=== PATIENT | female | born 1985 | race Caucasian/White ===

== ENCOUNTER 2024-10-01 17:11 | Emergency (ER) | payer BC, MEDICAID ==
[~2024-10-01] VITALS: Ht 165.1 cm; Wt 79.1 kg
[~2024-10-01 17:11] MED LIST: PREN-96 PO
[2024-10-01 17:20] VITALS: BP 138/90; PULSE 91; RESP 17; TEMP 98.1; O2SAT 99
--- NOTE | 2024-10-01 18:16 | DVH ---
Procedure: US GALLBLADDER Study Date and Requested Time: 10/01/2024 05:40 PM History: pain Comparison: None Technique: Multiple high resolution ricardo-scale images obtained of the right upper quadrant of the abd omen with color Doppler for evaluation of blood flow and vascularity as indicated. Findings: Liver normal in size, measuring 15.1 cm in length, with increased echogenicity and normal contours. N o evidence of focal hepatic lesions, intrahepatic or extrahepatic ductal dilatation. Common bile duct measures 0.3 cm in diameter. Gallbladder unremarkable with no evidence of abnormal wall thickening, gallstones, biliary sludge, or pericholecystic fluid. Negative sonographic Ledesma's sign. Pancreas is poorly visualized due to overlying bowel gas. Right kidney measures 11.5 cm in length, with normal contours, echotexture, and cortical thickness. N o evidence of hydronephrosis, calculi, cystic or solid renal lesions. Partially visualized inferior vena cava unremarkable. Impression: Increased hepatic echogenicity which may be from hepatic disease/ hepatic steatosis. Otherwise, unre markable sonographic study of the right upper abdominal quadrant. Pancreas is poorly visualized due to overlying bowel gas.
[2024-10-01 18:20] LABS: Hematocrit 41.1 % (36.0-46.0); Hemoglobin 13.8 g/dL (12.2-16.2); Mean Corpuscular Hemoglobin 29.2 pg (28.0-32.0); Mean Corpuscular Volume 86.8 fL (80.0-100.0); Nucleated Red Blood Cells % 0.0 %
[2024-10-01 18:33] LABS: Urine Protein, UAD Negative (Negative)
[2024-10-01 18:38] LABS: Alanine Aminotransferase 19 U/L (7-40); Albumin 4.6 g/dL (3.2-4.8); Alkaline Phosphatase 63 U/L (46-116); Anion Gap 9 (5-15); BUN/Creatinine Ratio 9.2 (10.0-20.0); Calcium 9.3 mg/dL (8.7-10.4); Carbon Dioxide 25 mmol/L (20-31); Chloride 106 mmol/L (98-107); Glucose 86 mg/dL (74-106); Lipase 36 U/L (12-53); Potassium 3.7 mmol/L (3.5-5.1); Sodium 140 mmol/L (136-145); Total Protein 7.7 g/dL (5.7-8.2)
[2024-10-01 18:39] LABS: Bilirubin, Total 0.9 mg/dL (0.2-1.0)
[2024-10-01 18:41] LABS: Blood Urea Nitrogen 7 mg/dL (9-23)
--- NOTE | 2024-10-01 18:41 | ED.PDOC ---
GI ASSESSMENT HPI Comments 39 y.o female presents to the ED for a chief complaint of abdominal pain associated with nausea and SOB that started earlier today. Patient reports standing up, felt lightheaded and shortly after developed the abdominal pain localized to the epigastric and RLQ region. Patient describes pain as an ache and pressure sensation that is non radiating, constant and rating a 5/10 on the pain scale. Patient denies any vomiting, diarrhea, fever, chills, bloody stool, hematemesis, dysuria. Patient has no medical history or allergies. She reports occasional use of alcohol. Chief Complaint: Abdominal Pain Time Seen by MD: 18:10 Primary Care Provider: LEDY Reviewed Notes: Nurses Notes, Medications, Allergies Allergies: Coded Allergies: Penicillins (Verified Allergy, Unknown, 09/30/13) Home Meds Reported Medications Vit W/ Ferrous Fumara ( One Daily) Daily Tab, 1 TAB PO DAILY, #90 TAB 3 Refills 02/24/14 Information Source: Patient Mode of Arrival: Ambulatory Timing: Hours Duration: Since onset Quality: Aching Vomitus: None Stool: Normal Severity: Moderate Recent: None Recent Hx of: None Pain Location: Epigastric, RLQ Modifying Factors: Nothing Associated sign and symptoms: Nausea, Abdominal Pain Past Medical History PAST MEDICAL HISTORY: Denies 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 Family History Family History: Family hx of heart claudia Social History Smoker: Non-Smoker Alcohol: Occasionally Drugs: Denies Drug Use Lives In: Home Constitutional: denies: chills, diaphoresis, fatigue, fever, malaise, sweats, weakness, others EENTM: denies: blurred vision, double vision, ear bleeding, ear discharge, ear drainage, ear pain, ear ringing, eye pain, eye redness, hearing loss, mouth pain, mouth swelling, nasal discharge, nose bleeding, nose congestion, nose pain, photophobia, tearing, throat pain, throat swelling, voice changes, others Respiratory: reports: shortness of breath; denies: cough, hemoptysis, orthopnea, SOB at rest, SOB with excertion, stridor, wheezing, others Cardiovascular: reports: lightheadedness; denies: chest pain, dizzy spells, diaphoresis, Dyspnea on exertion, edema, irregular heart beat, left arm pain, palpitations, PND, syncope, others Gastrointestinal: reports: abdominal pain, nausea; denies: abdomen distended, blood streaked bowels, constipated, diarrhea, dysphagia, difficulty swallowing, hematemesis, melena, poor appetite, poor fluid intake, rectal bleeding, rectal pain, vomiting, others Genitourinary: denies: abnormal vagina bleeding, burning, dyspareunia, dysuria, flank pain, frequency, hematuria, incontinence, pain, , vagina discharge, urgency, others Neurological: denies: dizziness, fainting, headache, left sided numbness, left sided weakness, numbness, paresthesia, pre-existing deficit, right sided numbness, right sided weakness, seizure, speech problems, tingling, tremors, weakness, others Musculoskeletal: denies: back pain, gout, joint pain, joint swelling, muscle pain, muscle stiffness, neck pain, others Integumetry: denies: bruises, change in color, change in hair/nails, dryness, laceration, lesions, lumps, rash, wounds, others Allergic/Immunocompromised: denies: Difficulty Healing, Frequent Infections, Hives, Itching, others Hematologic/Lymphatic: denies: anemia, blood clots, easy bleeding, easy bruising, swollen glands, others Endocrine: denies: excessive hunger, excessive sweating, excessive thirst, excessive urination, flushing, intolerance to cold, intolerance to heat, unexplained weight gain, unexplained weight loss, others Psychiatric: denies: anxiety, bipolar disorder, depression, hopeless, panic disorder, schizophrenia, sleepless, suicidal, others All Other Systems: Reviewed and Negative Physical Exam General Appearance: Moderate Distress, Obese HEENT: Normal ENT Inspection, Pharynx Normal, TMs Normal Neck: Full Range of Motion, Non-Tender, Normal, Normal Inspection Respiratory: Chest Non-Tender, Lungs Clear, No Accessory Muscle Use, No Respiratory Distress, Normal Breath Sounds Cardiovascular: No Edema, No JVD, No Murmur, No Gallop, Normal Peripheral Pulses, Regular Rate/Rhythm Breast Exam: Deferred Gastrointestinal: Epigastric, No Organomegaly, No Pulsatile Mass, Normal Bowel Sounds, Soft, Tenderness Genitalia: Deferred Pelvic: Deferred Rectal: Deferred Extremities: No calf tenderness, Normal capillary refill, No pedal edema Musculoskeletal : Apperance: Normal Neurologic: Alert, coagulating bath operator II-XII nml as Tested, No Motor Deficits, Normal Affect, Normal Mood, No Sensory Deficits Cerebellar Function: Normal Reflexes: Normal Skin: Dry, Normal Color, Warm Lymphatic: No Adenopathy Was a procedure done? Was a procedure done?: No GI differential Dx Differential Diagnosis: Gastroenteritis, Inflammatory BD, Dehydration, Electrolyte Imbalance, Food Poisoning, Viral X-Ray, Labs, Meds, VS Vital Signs Date Time Temp Pulse Resp B/P (MAP) Pulse Ox O2 Delivery O2 Flow Rate FiO2 10/01/24 17:20 98.1 91 17 138/90 (106) 99 98.1 Lab Test 10/01/24 18:21 10/01/24 17:41 Range/Units Urine Color Colorless Yellow Urine Clarity Clear Clear Urine pH 5.5 5.0-9.0 Urine Specific [place] 1.009 1.001-1.035 Urine Protein Negative Negative Urine Ketones Negative Negative Urine Blood Negative Negative /uL Urine Nitrite Negative Negative Urine Bilirubin Negative Negative Urine Urobilinogen Normal Negative mg/dL Urine Leukocyte Esterase Negative Negative /uL Urine RBC <1 0 - 4 /hpf Urine Microscopic WBC 1 0-5 /HPF Urine Squamous Epithelial Cells Few <5 /hpf Urine Bacteria Few H None Seen /hpf Urine Glucose Normal Normal mg/dL Urine Test Negative Negative White Blood Count 9.2 4.4-10.8 10^3/uL Red Blood Count 4.74 4.0-5.20 10^6/uL Hemoglobin 13.8 12.2-16.2 g/dL Hematocrit 41.1 36.0-46.0 % Mean Corpuscular Volume 86.8 80.0-100.0 fL Mean Corpuscular Hemoglobin 29.2 28.0-32.0 pg Mean Corpuscular Hemoglobin Concent 33.6 32.0-36.0 g/dL Red Cell Distribution Width 13.3 11.8-14.3 % Platelet Count 208 140-450 10^3/uL Mean Platelet Volume 8.7 6.9-10.8 fL Neutrophils (%) (Auto) 63.9 37.0-80.0 % Lymphocytes (%) (Auto) 28.2 10.0-50.0 % Monocytes (%) (Auto) 7.1 0.0-12.0 % Eosinophils (%) (Auto) 0.4 0.0-7.0 % Basophils (%) (Auto) 0.4 0.0-2.0 % Neutrophils # (Auto) 5.9 1.6-8.6 10 ^3/uL Lymphocytes # (Auto) 2.6 0.4-5.4 10 ^3/uL Monocytes # (Auto) 0.7 0-1.3 10 ^3/uL Eosinophils # (Auto) 0 0-0.8 10 ^3/uL Basophils # (Auto) 0 0-0.2 10 ^3/uL Nucleated Red Blood Cells 0.0 % Sodium Level 140 136-145 mmol/L Potassium Level 3.7 3.5-5.1 mmol/L Chloride Level 106 98-107 mmol/L Carbon Dioxide Level 25 20-31 mmol/L Anion Gap 9 5-15 Blood Urea Nitrogen 7 L 9-23 mg/dL Creatinine 0.76 0.550-1.02 mg/dL Glomerular Filtration Rate Calc 102 >90 mL/min BUN/Creatinine Ratio 9.2 L 10.0-20.0 Serum Glucose 86 74-106 mg/dL Calcium Level 9.3 8.7-10.4 mg/dL Total Bilirubin 0.9 0.2-1.0 mg/dL Aspartate Amino Transferase (AST) 22 13-40 U/L Alanine Aminotransferase (ALT) 19 7-40 U/L Alkaline Phosphatase 63 46-116 U/L Total Protein 7.7 5.7-8.2 g/dL Albumin 4.6 3.2-4.8 g/dL Lipase 36 12-53 U/L Ultrasound of the gallbladder is negative The CBC and chemistry panel are within normal limits The lipase is within normal limits The urine test is negative The test is negative The patient continues to have pain. The patient is being given Protonix 40 mg IV push for nausea and the pain The patient is also given Zofran IV push The patient is being admitted at this time. Images Reviewed?: Images reviewed and evaluated by me Time of 1ST Reevaluation: 18:41 Reevaluation 1ST: Unchanged Patient Education/Counseling: Diagnosis, Treatment, Prognosis Family Education/Counseling: No Family Present SEPSIS Sepsis Screen Date sepsis recognized/suspect: Oct 01, 2024 Time Sepsis recognized/suspect: 1719 Recent Procedure: No On Antibiotic Therapy: No Respiratory Rate >20: No Heart Rate >90: No Temp<36 C (96.8 F) or >38.3 C: No SBP <90 or MAP <65 mmHG: No New Acute Mental Status Change: No Is the patient on CPAP, BIPAP,: No Physician Orders Gallbladder (10/01/24 17:31) Vital Signs Date Time Temp Pulse Resp B/P (MAP) Pulse Ox O2 Delivery O2 Flow Rate FiO2 10/01/24 17:20 98.1 91 17 138/90 (106) 99 98.1 Laboratory Tests Test 10/01/24 17:41 White Blood Count 9.2 10^3/uL (4.4-10.8) Departure 1 Departure Time of Disposition: 18:53 Impression: Primary Impression: Abdominal pain of unknown etiology Disposition: ADMITTED INPATIENT Admit to: Med Surg Condition: Fair Critical Care Note Critical Care Time?: No Stability Stability form required: Yes Unstable for transfer: ED Physician Assesment (Clinical assesment) I personally scribed for JEREMY HORVATH MD ([email or web address]) on 10/01/24 at 18:41. Electronically submitted by Carla Morse ([facility]). JEREMY HORVATH MD Oct 01, 2024 18:41
[2024-10-01] MEDS ORDERED: ONDANSETRON HCL 4 MG/2 ML VIAL IV PRN (19:45)
[2024-10-01] MEDS ORDERED: HYDROcodone-ACET 5/325MG TAB PO PRN (19:45)
[2024-10-01] MEDS ORDERED: ACETAMINOPHEN 325 MG TAB PO PRN (19:45)
[2024-10-02] MEDS ORDERED: PANTOPRAZOLE 40 MG/10 ML VIAL INJ IV SCH (10:00)
== END 2024-10-01 20:23 | disposition left against medical advice (07) ==
LOC: ER 17:11 → UNDOADMIN 19:28 → OVERFLOW 19:28 → UNDODISIN 20:23 → OVERFLOW 20:23
DX: R10.13 Epigastric pain (principal)
CPT/HCPCS: 36415; 76705; 80053; 81001; 81025; 83690; 85025; G0378

== ENCOUNTER 2024-10-01 20:49 | Inpatient (IN) | payer BC ==
[~2024-10-01] VITALS: Ht 165.1 cm; Wt 79.2 kg
[2024-10-01] MEDS: MORPHINE SULFATE 4 MG/ML SYR/VIAL IV ONE (21:00)
--- NOTE | 2024-10-01 21:02 | ED.PDOC ---
GI ASSESSMENT HPI Comments 39 y.o female presents to the ED for a chief complaint of abdominal pain associated with nausea and SOB that started earlier today. Patient reports standing up, felt lightheaded and shortly after developed the abdominal pain localized to the epigastric and RLQ region. Patient describes pain as an ache and pressure sensation that is non radiating, constant and rating a 5/10 on the pain scale. Patient denies any vomiting, diarrhea, fever, chills, bloody stool, hematemesis, dysuria. Patient has no medical history or allergies. She reports occasional use of alcohol. Patient AMA after being placed for admission due to anxiety but checked in again due to persistent symptoms and agrees to stay. Time Seen by MD: 21:00 Primary Care Provider: LEDY Reviewed Notes: Nurses Notes, Medications, Allergies Allergies: Coded Allergies: Penicillins (Verified Allergy, Unknown, 09/30/13) Home Meds Reported Medications Vit W/ Ferrous Fumara ( One Daily) Daily Tab, 1 TAB PO DAILY, #90 TAB 3 Refills 02/24/14 Information Source: Patient Mode of Arrival: Ambulatory Timing: Days Duration: Since onset Quality: Sharp Vomitus: None Stool: Normal Severity: Moderate Recent: None Recent Hx of: None Pain Location: Epigastric Modifying Factors: Nothing Associated sign and symptoms: Nausea, Abdominal Pain Past Medical History PAST MEDICAL HISTORY: Denies 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 Family History Family History: Family hx of heart claudia Social History Smoker: Non-Smoker Alcohol: Occasionally Drugs: Denies Drug Use Lives In: Home Constitutional: denies: chills, diaphoresis, fatigue, fever, malaise, sweats, weakness, others EENTM: denies: blurred vision, double vision, ear bleeding, ear discharge, ear drainage, ear pain, ear ringing, eye pain, eye redness, hearing loss, mouth pain, mouth swelling, nasal discharge, nose bleeding, nose congestion, nose pain, photophobia, tearing, throat pain, throat swelling, voice changes, others Respiratory: denies: cough, hemoptysis, orthopnea, SOB at rest, shortness of breath, SOB with excertion, stridor, wheezing, others Cardiovascular: denies: chest pain, dizzy spells, diaphoresis, Dyspnea on exertion, edema, irregular heart beat, left arm pain, lightheadedness, palpitations, PND, syncope, others Gastrointestinal: reports: abdominal pain, nausea; denies: abdomen distended, blood streaked bowels, constipated, diarrhea, dysphagia, difficulty swallowing, hematemesis, melena, poor appetite, poor fluid intake, rectal bleeding, rectal pain, vomiting, others Genitourinary: denies: abnormal vagina bleeding, burning, dyspareunia, dysuria, flank pain, frequency, hematuria, incontinence, pain, , vagina discharge, urgency, others Neurological: denies: dizziness, fainting, headache, left sided numbness, left sided weakness, numbness, paresthesia, pre-existing deficit, right sided numbness, right sided weakness, seizure, speech problems, tingling, tremors, weakness, others Musculoskeletal: denies: back pain, gout, joint pain, joint swelling, muscle pain, muscle stiffness, neck pain, others Integumetry: denies: bruises, change in color, change in hair/nails, dryness, laceration, lesions, lumps, rash, wounds, others Allergic/Immunocompromised: denies: Difficulty Healing, Frequent Infections, Hives, Itching, others Hematologic/Lymphatic: denies: anemia, blood clots, easy bleeding, easy bruising, swollen glands, others Endocrine: denies: excessive hunger, excessive sweating, excessive thirst, excessive urination, flushing, intolerance to cold, intolerance to heat, unexplained weight gain, unexplained weight loss, others Psychiatric: denies: anxiety, bipolar disorder, depression, hopeless, panic disorder, schizophrenia, sleepless, suicidal, others All Other Systems: Reviewed and Negative Physical Exam General Appearance: Moderate Distress HEENT: Normal ENT Inspection, Pharynx Normal, TMs Normal Neck: Full Range of Motion, Non-Tender, Normal, Normal Inspection Respiratory: Chest Non-Tender, Lungs Clear, No Accessory Muscle Use, No Respiratory Distress, Normal Breath Sounds Cardiovascular: No Edema, No JVD, No Murmur, No Gallop, Normal Peripheral Pulses, Regular Rate/Rhythm Breast Exam: Deferred Gastrointestinal: Epigastric, No Organomegaly, No Pulsatile Mass, Normal Bowel Sounds, Soft, Tenderness Genitalia: Deferred Pelvic: Deferred Rectal: Deferred Extremities: No calf tenderness, Normal capillary refill, Normal inspection, Normal range of motion, Non-tender, No pedal edema Musculoskeletal : Apperance: Normal Neurologic: Alert, steel placer II-XII nml as Tested, No Motor Deficits, Normal Affect, Normal Mood, No Sensory Deficits Cerebellar Function: Normal Reflexes: Normal Skin: Dry, Normal Color, Warm Lymphatic: No Adenopathy Was a procedure done? Was a procedure done?: No GI differential Dx Differential Diagnosis: Gastroenteritis, Pancreatitis, Electrolyte Imbalance, Viral X-Ray, Labs, Meds, VS Vital Signs Date Time Temp Pulse Resp B/P (MAP) Pulse Ox O2 Delivery O2 Flow Rate FiO2 10/01/24 21:02 98.2 103 20 125/92 (103) 98 98.2 IV Hep-Lock was established The patient is being given morphine IV push The patient is being given Zofran IV push At this time, the patient is being admitted The patient was supposed to be admitted but signed out AMA earlier today. The patient has now returned with increased pain so the patient is being admitted at this time We did explain to the patient that we are concerned that even if the ultrasound is negative for stones we need to do a HIDA scan secondary to persistent pain Time of 1ST Reevaluation: 21:02 Reevaluation 1ST: Unchanged Patient Education/Counseling: Diagnosis, Treatment, Prognosis Family Education/Counseling: No Family Present SEPSIS Sepsis Screen Physician Orders Heplock Iv (10/01/24 ) Vital Signs Date Time Temp Pulse Resp B/P (MAP) Pulse Ox O2 Delivery O2 Flow Rate FiO2 10/01/24 21:02 98.2 103 20 125/92 (103) 98 98.2 Departure 1 Departure Time of Disposition: 21:12 Impression: Primary Impression: Abdominal pain of unknown etiology Disposition: ADMITTED INPATIENT Admit to: Tele Condition: Fair Critical Care Note Critical Care Time?: No Stability Stability form required: Yes Unstable for transfer: ED Physician Assesment (Clinical assesment) I personally scribed for JEREMY HORVATH MD ([email or web address]) on 10/01/24 at 21:02. Electronically submitted by Carla Morse ([facility]). JEREMY HORVATH MD Oct 01, 2024 21:02
[2024-10-01] MEDS: SODIUM CHLORIDE 0.9% 1,000 ML IV ONE (22:00)
--- NOTE | 2024-10-01 22:49 | DVH ---
Exam: CT CT AB PEL WO CON-NO ORAL OR IV History: abd. pain Comparison Study: None Technique: Multidetector spiral CT of the abdomen was performed from lung bases to pubic symphysis. Imaging was performed without IV contrast. Axial, coronal and sagittal multiplanar reformats were ob tained from the axial data set by the technologist. Radiation dose : 1. Abdomen/Pelvis: CTDIvol 8.34 mGy, DLP 480.53 mGy*cm. Findings: Evaluation of solid organs is limited due to lack of intravenous contrast use. The imaged lung bases are unremarkable. Subcentimeter left hepatic lobe cyst. Gallbladder, spleen, pancreas, adrenal glands, and right kidney s within normal limits. Punctate left lower pole renal stone. Urinary bladder is unremarkable. The ut erus and adnexa are within normal limits. Stomach is mildly distended with undigested material. Small bowel and appendix are within normal limi ts. Trace free fluid in the pelvis. Aorta is normal in caliber. Bones are unremarkable. IMPRESSION: 1. No acute abdominal or pelvic findings. 2. Punctate left lower pole renal stone 3. Mildly distended stomach with undigested material Radiation optimization: All CT scans at this facility use at least one of these dose optimization elan hniques: automated exposure control mA and/or kV adjustment per patient size (includes targeted exam s where dose is matched to clinical indication) or iterative reconstruction.
[2024-10-02] VITALS (7 sets, daily range): BP systolic 91–108; BP diastolic 56–72; PULSE 73–80; RESP 14–18; TEMP 98–98.5; O2SAT 96–100
[2024-10-02] MEDS: ONDANSETRON HCL 4 MG/2 ML VIAL IV ONE
--- NOTE | 2024-10-02 01:21 | DVHHP2 ---
History of Present Illness Reason for Visit: Abdominal pain History of Present Illness 39-year-old female presents for evaluation of abdominal. Patient reports a one day history of pressure-like epigastric abdominal pain that radiates to his right lower quadrant. No nausea, vomiting or diarrhea. Denies dysuria. No other acute complaints. Past Medical History Denies Past Surgical History Family History Noncontributory Smoke: No ALCOHOL: occassional Drugs: None Review of Systems Review of Systems Review of systems are currently negative otherwise addressed in HPI. Allergies: Coded Allergies: Penicillins (Verified Allergy, Unknown, 09/30/13) Medications Current Medications Medications Dose Ordered Sig/Carlos Route Start Time Stop Time Status Last Admin Dose Admin Pantoprazole Sodium 40 mg DAILY IV 10/02/24 10:00 Acetaminophen/ Hydrocodone Bitart 1 tab Q4HP PRN PO 10/01/24 22:00 Ondansetron HCl 4 mg Q4HP PRN IV 10/01/24 22:00 Acetaminophen 650 mg Q6HP PRN PO 10/01/24 22:00 Exam Vital Signs Vital Signs Date Time Temp Pulse Resp B/P (MAP) Pulse Ox O2 Delivery O2 Flow Rate FiO2 10/02/24 00:22 93 16 98 Room Air 10/02/24 00:22 98.5 123/87 (99) 98.5 Exam Gen: 39-year-old female in no apparent distress. Skin: Warm, dry, normal color and texture, no rash. HEENT: Normocephalic atraumatic, mucous membranes moist and pink. Neck: Cervical and supraclavicular nodes normal without enlargement, trachea is midline, thyroid gland is normal without masses. Pulmonary: Clear to auscultation and percussion bilaterally. Cardiac: Regular rate and rhythm. No murmur Abdomen: Soft, nontender, nondistended, bowel sounds present all 4 quadrants, no guarding, no rigidity, no organomegaly. Extremities: No cyanosis, clubbing, no edema Neuro: Cranial nerves II through XII grossly intact, normal affect and speech, no focal motor deficits. Labs/Xrays ORDERING PHYSICIAN: JEREMY HORVATH MD PROCEDURE(s): GBUS - GALLBLADDER REASON: pain ORDER NUMBER(s): [id number], ACCESSION NUMBER(s): [id number] Procedure: US GALLBLADDER Study Date and Requested Time: 10/01/2024 05:40 PM History: pain Comparison: None Technique: Multiple high resolution ricardo-scale images obtained of the right upper quadrant of the abdomen with color Doppler for evaluation of blood flow and vascularity as indicated. Findings: Liver normal in size, measuring 15.1 cm in length, with increased echogenicity and normal contours. No evidence of focal hepatic lesions, intrahepatic or extrahepatic ductal dilatation. Common bile duct measures 0.3 cm in diameter. Gallbladder unremarkable with no evidence of abnormal wall thickening, gallstones, biliary sludge, or pericholecystic fluid. Negative sonographic Ledesma's sign. Pancreas is poorly visualized due to overlying bowel gas. Right kidney measures 11.5 cm in length, with normal contours, echotexture, and cortical thickness. No evidence of hydronephrosis, calculi, cystic or solid renal lesions. Partially visualized inferior vena cava unremarkable. Impression: Increased hepatic echogenicity which may be from hepatic disease/ hepatic steatosis. Otherwise, unremarkable sonographic study of the right upper abdominal quadrant. Pancreas is poorly visualized due to overlying bowel gas. RING PHYSICIAN: ELIAS BEY PROCEDURE(s): ABPL - CT AB PEL WO CON-NO ORAL OR IV REASON: abd. pain ORDER NUMBER(s): [id number], ACCESSION NUMBER(s): [id number] Exam: CT CT AB PEL WO CON-NO ORAL OR IV History: abd. pain Comparison Study: None Technique: Multidetector spiral CT of the abdomen was performed from lung bases to pubic symphysis. Imaging was performed without IV contrast. Axial, coronal and sagittal multiplanar reformats were obtained from the axial data set by the technologist. Radiation dose : 1. Abdomen/Pelvis: CTDIvol 8.34 mGy, DLP 480.53 mGy*cm. Findings: Evaluation of solid organs is limited due to lack of intravenous contrast use. The imaged lung bases are unremarkable. Subcentimeter left hepatic lobe cyst. Gallbladder, spleen, pancreas, adrenal glands, and right kidneys within normal limits. Punctate left lower pole renal stone. Urinary bladder is unremarkable. The uterus and adnexa are within normal limits. Stomach is mildly distended with undigested material. Small bowel and appendix are within normal limits. Trace free fluid in the pelvis. Aorta is normal in caliber. Bones are unremarkable. IMPRESSION: 1. No acute abdominal or pelvic findings. 2. Punctate left lower pole renal stone 3. Mildly distended stomach with undigested material Radiation optimization: All CT scans at this facility use at least one of these dose optimization techniques: automated exposure control mA and/or kV adjustment per patient size (includes targeted exams where dose is matched to clinical indication) or iterative reconstruction. Assessment/Plan Assessment/Plan Assessment Acute abdominal pain Plan Admit the patient to [facility] to the hospitalist Maintenance IV fluids Protonix Pain management Clear liquid diet Continue treatment per orders. Plan discussed with: Patient My Orders Orders - ELIAS BEY Procedure Category Date Status Time Basic Metabolic Panel LAB 10/02/24 Logged 04:00 Pantoprazole PHA 10/02/24 In Process (Protonix) 10:00 Sodium Chloride 0.9% PHA 10/01/24 In Process 22:00 Ct Ab Pel Wo Con-No CT 10/01/24 Resulted Oral Or Iv 21:54 Admit ADMIT 10/01/24 Transmitted 21:54 Hydrocodone-Acet PHA 10/01/24 In Process 5/325mg Tab ([place] 22:00 Ondansetron Hcl PHA 10/01/24 In Process (Zofran) 22:00 Condition: Stable RACHELL 10/01/24 In Process 21:54 Acetaminophen Tablet PHA 10/01/24 In Process (Tylenol Tablet) 22:00 Clear Liq Diet DIET 10/02/24 Transmitted Breakfast Bedrest With Bathroom RACHELL 10/01/24 In Process Privileg 21:54 Date of Service: Oct 01, 2024 Billing Provider: ELIAS BEY Common Visit Codes: [id number] INP/OBS CARE (MOD) ELIAS BEY Oct 02, 2024 01:21
[2024-10-02] MEDS: ACETAMINOPHEN 325 MG TAB PO PRN (06:28)
[2024-10-02 06:57] LABS: Sodium 139 mmol/L (136-145)
[2024-10-02 06:58] LABS: Anion Gap 10 (5-15); Carbon Dioxide 22 mmol/L (20-31)
[2024-10-02 06:59] LABS: Calcium 8.6 mg/dL (8.7-10.4); Chloride 107 mmol/L (98-107); Potassium 3.5 mmol/L (3.5-5.1)
[2024-10-02 07:03] LABS: BUN/Creatinine Ratio 11.1 (10.0-20.0); Glucose 94 mg/dL (74-106)
[2024-10-02 07:04] LABS: Blood Urea Nitrogen 8 mg/dL (9-23)
[2024-10-02] MEDS: PANTOPRAZOLE 40 MG/10 ML VIAL INJ IV SCH (09:01)
--- NOTE | 2024-10-02 14:48 | DVHPN2 ---
Reviewed: Care Plan, H&P, Labs, Medications, Previous Orders, Radiology Changes from previous H/P or p: No Changes Objective Vitals Vital Signs Date Time Temp Pulse Resp B/P (MAP) Pulse Ox O2 Delivery O2 Flow Rate FiO2 10/02/24 08:45 98.2 77 16 98/56 (70) 96 98.2 10/02/24 00:22 Room Air Medications Current Medications Medications Dose Ordered Sig/Carlos Route Start Time Stop Time Status Last Admin Dose Admin Pantoprazole Sodium 40 mg DAILY IV 10/02/24 10:00 10/02/24 09:01 40 MG Acetaminophen/ Hydrocodone Bitart 1 tab Q4HP PRN PO 10/01/24 22:00 Ondansetron HCl 4 mg Q4HP PRN IV 10/01/24 22:00 Acetaminophen 650 mg Q6HP PRN PO 10/01/24 22:00 10/02/24 06:28 650 MG Laboratory Results Laboratory Tests 10/02/24 05:48 Chemistry Test 10/02/24 05:48 Calcium Level 8.6 mg/dL (8.7-10.4) L Labs and/or images reviewed: Labs reviewed by me, Image(s) reviewed by me Assessment/Plan Assessment/Plan Acute epigastric pain: CT abdomen pelvis without contrast negative, will order lipase and urine drug screen., consult for GI Dr. Geraldine West Plan discussed with: Patient Date of Service: Oct 02, 2024 Billing Provider: JEN FINNEY MD Common Visit Codes: [id number] INP/OBS CARE(HIGH) JEN FINNEY MD Oct 02, 2024 14:48
[2024-10-02] MEDS: ONDANSETRON HCL 4 MG/2 ML VIAL IV PRN (15:13)
[2024-10-02] MEDS: HYDROcodone-ACET 5/325MG TAB PO PRN (15:14)
--- NOTE | 2024-10-02 17:23 | DVHINCON2 ---
Date of service: Oct 02, 2024 Referring Physician Jamal Powell Reason for Consultation Abdominal pain History of Present Illness 39-year-old female presents for evaluation of abdominal. Patient reports a one day history of pressure-like epigastric abdominal pain that radiates to her right lower quadrant. No nausea, vomiting or diarrhea. Denies dysuria. No other acute complaints. Patient was seen in our ER yesterday with similar complaints and left AMA. She however presented back with persistent symptoms. No active GI bleed is reported. Past Medical History Alcohol use Past Surgical History Allergies: Coded Allergies: Penicillins (Verified Allergy, Unknown, 09/30/13) Home Meds Reported Medications Vit W/ Ferrous Fumara ( One Daily) Daily Tab, 1 TAB PO DAILY, #90 TAB 3 Refills 02/24/14 Current Medications Current Medications Medications (Trade) Dose Ordered Sig/Carlos Route PRN Reason Start Time Stop Time Status Last Admin Pantoprazole Sodium (Protonix) 40 mg DAILY IV 10/02/24 10:00 10/02/24 09:01 Acetaminophen/ Hydrocodone Bitart (Linneus 5/325MG Tab) 1 tab Q4HP PRN PO MODERATE PAIN (4-6 PAIN SCALE) 10/01/24 22:00 10/02/24 15:14 Ondansetron HCl (Zofran) 4 mg Q4HP PRN IV NAUSEA / VOMITING 10/01/24 22:00 10/02/24 15:13 Acetaminophen (Tylenol Tablet) 650 mg Q6HP PRN PO PAIN SCALE 1-3 OR TEMP>100.4 10/01/24 22:00 10/02/24 06:28 Vital Signs Vital Signs Date Time Temp Pulse Resp B/P (MAP) Pulse Ox O2 Delivery O2 Flow Rate FiO2 10/02/24 14:00 98.5 76 16 108/72 (84) 98 98.5 10/02/24 00:22 Room Air Physical Exam Gen: 39-year-old female in no apparent distress. Skin: Warm, dry, normal color and texture, no rash. HEENT: Normocephalic atraumatic, mucous membranes moist and pink. Neck: Cervical and supraclavicular nodes normal without enlargement, trachea is midline, thyroid gland is normal without masses. Pulmonary: Clear to auscultation and percussion bilaterally. Cardiac: Regular rate and rhythm. No murmur Abdomen: Soft, nontender, nondistended, bowel sounds present all 4 quadrants, no guarding, no rigidity, no organomegaly. Extremities: No cyanosis, clubbing, no edema Neuro: Cranial nerves II through XII grossly intact, normal affect and speech, no focal motor deficits. Labs/Diagnostic Data Labs Test 10/02/24 05:48 Range/Units Sodium Level 139 136-145 mmol/L Potassium Level 3.5 3.5-5.1 mmol/L Chloride Level 107 98-107 mmol/L Carbon Dioxide Level 22 20-31 mmol/L Anion Gap 10 5-15 Blood Urea Nitrogen 8 L 9-23 mg/dL Creatinine 0.72 0.550-1.02 mg/dL Glomerular Filtration Rate Calc 109 >90 mL/min BUN/Creatinine Ratio 11.1 10.0-20.0 Serum Glucose 94 74-106 mg/dL Calcium Level 8.6 L 8.7-10.4 mg/dL Lipase 39 12-53 U/L Beta HCG, Quantitative 0.5 L 1.5-4.2 mIU/mL CT SCAN ABD PELVIS IMPRESSION: 1. No acute abdominal or pelvic findings. 2. Punctate left lower pole renal stone 3. Mildly distended stomach with undigested material RUQ USG Impression: Increased hepatic echogenicity which may be from hepatic disease/ hepatic steatosis. Otherwise, unremarkable sonographic study of the right upper abdominal quadrant. Pancreas is poorly visualized due to overlying bowel gas. Problems(with codes): (1) Abdominal pain of unknown etiology Plan/Recommendation Plan IV fluid hydration IV PPI Clear liquid diet Possible endoscopy on 10/03/2024 DC aspirin NSAIDs smoking alcohol Monitor labs, drug screen Plan discussed with: Patient, Other (Dr Jamal Powell) RAMON LALA MD Oct 02, 2024 17:23
[2024-10-02 19:16] LABS: Opiate Scree,Urine Neg (NEGATIVE)
[2024-10-02 19:38] LABS: Amphetamine Screen, Urine Neg (NEGATIVE); Barbiturate Scree,Urine Neg (NEGATIVE); Benzodiazephine Screen, Urine Neg (NEGATIVE); Cannabinoid Screen, Urine Neg (NEGATIVE); Cocaine Screen, Urine Neg (NEGATIVE); Phencyclidine Screen, Urine Neg (NEGATIVE)
[2024-10-03] VITALS (11 sets, daily range): BP systolic 93–117; BP diastolic 49–77; PULSE 70–101; RESP 12–20; TEMP 97.8–98.9; O2SAT 92–99
[2024-10-03 09:02] LABS: INR 1.07 (0.9-1.15); Partial Thromboplastin Time 29.3 SEC (24.5-34.5); Prothrombin Time 11.3 sec (9.3-11.8)
[2024-10-03 09:06] LABS: Hematocrit 39.0 % (36.0-46.0); Hemoglobin 13.1 g/dL (12.2-16.2); Mean Corpuscular Hemoglobin 29.4 pg (28.0-32.0); Mean Corpuscular Volume 87.3 fL (80.0-100.0); Nucleated Red Blood Cells % 0.1 %
--- NOTE | 2024-10-03 10:28 | DVHPN2 ---
Reviewed: Care Plan, H&P, Labs, Medications, Previous Orders, Radiology Changes from previous H/P or p: No Changes Objective Vitals Vital Signs Date Time Temp Pulse Resp B/P (MAP) Pulse Ox O2 Delivery O2 Flow Rate FiO2 10/03/24 09:00 98.3 78 18 101/49 (66) 97 98.3 10/02/24 22:05 Room Air* 0 21 Medications Current Medications Medications Dose Ordered Sig/Carlos Route Start Time Stop Time Status Last Admin Dose Admin Pantoprazole Sodium 40 mg DAILY IV 10/02/24 10:00 10/03/24 10:20 40 MG Acetaminophen/ Hydrocodone Bitart 1 tab Q4HP PRN PO 10/01/24 22:00 10/02/24 15:14 1 TAB Ondansetron HCl 4 mg Q4HP PRN IV 10/01/24 22:00 10/02/24 15:13 4 MG Acetaminophen 650 mg Q6HP PRN PO 10/01/24 22:00 10/03/24 10:20 650 MG Laboratory Results Laboratory Tests 10/02/24 05:48 10/03/24 07:55 Coagulation Test 10/03/24 07:55 Prothrombin Time 11.3 sec (9.3-11.8) Prothrombin Time INR 1.07 (0.9-1.15) Activated Partial Thromboplast Time 29.3 SEC (24.5-34.5) Labs and/or images reviewed: Labs reviewed by me, Image(s) reviewed by me Assessment/Plan Assessment/Plan Acute epigastric pain: CT abdomen pelvis without contrast negative, lipase normal, urine drug screen neg, consult for GI Dr. Geraldine West appreciated, planning for EGD today Plan discussed with: Patient My Orders Orders - JEN FINNEY MD Procedure Category Date Status Time * Gi Dvh [employer] CONS 10/02/24 Transmitted 14:48 Date of Service: Oct 03, 2024 Billing Provider: JEN FINNEY MD Common Visit Codes: [id number] INP/OBS CARE(HIGH) JEN FINNEY MD Oct 03, 2024 10:28
[2024-10-03] MEDS ORDERED: LIDOCAINE VISCOUS 2% 15ML UD ONE (13:53)
[2024-10-03] MEDS ORDERED: fentaNYL CITRATE 100 MCG/2 ML VL ONE (13:57)
[2024-10-03] MEDS ORDERED: MIDAZOLAM HCL 2MG/2ML 2ml VIAL (1mg/ml) ONE (13:58)
[2024-10-03] MEDS ORDERED: PROPOFOL 10 MG/ML 20 ML IV ONE (13:59)
--- NOTE | 2024-10-03 14:27 | DVHOP2 ---
Operative Report DATE OF OPERATION: 10/03/24 PROCEDURE: Upper Endoscopy with biopsy. PREOPERATIVE INDICATION: The patient is a 39 -year-old female undergoing endoscopy for epigastric pain and dyspepsia nausea and vomiting POSTOPERATIVE DIAGNOSES: 1. Patient had a 1 cm sliding-type hiatal hernia with slightly irregular sq uamocolumnar junction minimal grade a erosive esophagitis 2. She had mild antral gastritis and minimal duodenitis of the duodenal bulb otherwise normal examination up to the 2nd and 3rd part of the duodenal PROCEDURE PERFORMED BY: Ramon West GI NURSE: Catia SCOPE: Olympus videoendoscope. ASA CLASS: 2. PREOPERATIVE MEDICATIONS: Mac sedationDr. Barrera PROCEDURE IN DETAIL: After obtaining an informed consent, the patient was placed on left lateral decubitus position. The patient was then sedated with the above medications. A bite block was placed between her teeth. The endoscope was then passed through the oropharynx, into the esophagus, and through the stomach and pylorus up to the second and third part of the duodenum. The endoscope was then withdrawn. The 2nd and 3rd part of the duodenal were normal. Duodenal bulb and postbulbar area showed minimal duodenitis. Duodenal biopsies were obtained. The pre-pyloric area antrum and body showed mild gastritis with some hyperemia erythema and mucosal edema. Gastric biopsies were obtained. On retroflexion the fundus cardia and angularis were normal. The endoscope was then withdrawn into the distal esophagus. Patient had a 1 cm sliding-type hiatal hernia with grade a erosive esophagitis. GE junction biopsies were obtained. The remaining distal and proximal esophagus and oropharynx were unremarkable The patient tolerated the procedure well without difficulty. COMPLICATIONS : None SPECIMENS: Duodenal biopsy Gastric biopsy GE junction biopsies DISPOSITION: Transfer back to the floor Stable PLAN: 1. Await for biopsy result 2. Will place pt on Protonix 40 mg bid 3. Carafate suspension 1 g p.o. twice a day 4. DC aspirin NSAIDs smoking alcohol 5. Resume soft mechanical diet advance as tolerated 6. Outpatient follow up with me in 4-6 weeks to review results and discuss further management RAMON WEST MD Oct 03, 2024 14:27
[2024-10-03] MEDS: ONDANSETRON HCL 4 MG/2 ML VIAL IV ONE (14:45)
[2024-10-03] MEDS ORDERED: MORPHINE SULFATE 4 MG/ML SYR/VIAL IV PRN (14:45)
[2024-10-03] MEDS ORDERED: hydrALAZINE HCL 20 MG/ML VL IV PRN (14:45)
[2024-10-03] MEDS ORDERED: HYDROmorphone HCL 2 MG/ML VL/or syr IV PRN (14:45)
[2024-10-03] MEDS ORDERED: MIDAZOLAM HCL 2MG/2ML 2ml VIAL (1mg/ml) IV PRN (14:45)
[2024-10-03] MEDS: PANTOPRAZOLE 40 MG TAB PO SCH (18:02)
[2024-10-03] MEDS: SUCRALFATE 1 GM/10 ML ORAL SUSP PO SCH (18:02)
[2024-10-04 05:00] VITALS: BP 92/47; PULSE 73; RESP 18; TEMP 98.7; O2SAT 98
[2024-10-04 08:00] VITALS: PULSE 77; RESP 16; O2SAT 98
[2024-10-04 09:00] VITALS: BP 98/62; PULSE 77; RESP 16; TEMP 97.5; O2SAT 98
[2024-10-04] MEDS ORDERED: SUCR1TAB31 PO (10:34)
[2024-10-04] MEDS ORDERED: PANT40T PO (10:34)
--- NOTE | 2024-10-04 10:35 | DVHPN2 ---
Reviewed: Care Plan, H&P, Labs, Medications, Previous Orders, Radiology Changes from previous H/P or p: No Changes Objective Vitals Vital Signs Date Time Temp Pulse Resp B/P (MAP) Pulse Ox O2 Delivery O2 Flow Rate FiO2 10/04/24 05:00 98.7 73 18 92/47 (62) 98 98.7 10/03/24 20:00 Room Air* 0 21 Intake/Output Intake and Output 10/04/24 07:00 Intake Total 570 ml Balance 570 ml Intake Oral 520 ml IV Total 50 ml # Voids 6 Medications Current Medications Medications Dose Ordered Sig/Carlos Route Start Time Stop Time Status Last Admin Dose Admin Acetaminophen/ Hydrocodone Bitart 1 tab Q4HP PRN PO 10/01/24 22:00 10/04/24 08:38 1 TAB Ondansetron HCl 4 mg Q4HP PRN IV 10/01/24 22:00 10/02/24 15:13 4 MG Acetaminophen 650 mg Q6HP PRN PO 10/01/24 22:00 10/03/24 21:58 650 MG Pantoprazole Sodium 40 mg BID@0600,1700 PO 10/03/24 17:00 10/04/24 06:14 40 MG Sucralfate 1 gm QID@0600,1130,1700,2200 PO 10/03/24 17:00 10/04/24 06:14 1 GM Laboratory Results Laboratory Tests 10/02/24 05:48 10/03/24 07:55 Labs and/or images reviewed: Labs reviewed by me, Image(s) reviewed by me Assessment/Plan Assessment/Plan Acute epigastric pain: CT abdomen pelvis without contrast negative, lipase normal, urine drug screen neg, Grade A erosive esophagitis mild gastritis and mild duodenitis by EGD by Dr. Geraldine West on 10/04/2024 Plan discussed with: Patient Date of Service: Oct 04, 2024 Billing Provider: JEN FINNEY MD Common Visit Codes: [id number] INP/OBS CARE(HIGH) JEN FINNEY MD Oct 04, 2024 10:35
--- NOTE | 2024-10-04 10:38 | DVHDS2 ---
Discharge Summary Date of Admission Oct 01, 2024 at 21:54 Date of Discharge: Oct 04, 2024 Admitting Diagnosis Epigastric abdominal pain Wounds: EGD Labs/Diagnostic Data: Laboratory Results Test 10/03/24 07:55 10/02/24 16:00 10/02/24 05:48 White Blood Count 5.0 10^3/uL (4.4-10.8) Red Blood Count 4.47 10^6/uL (4.0-5.20) Hemoglobin 13.1 g/dL (12.2-16.2) Hematocrit 39.0 % (36.0-46.0) Mean Corpuscular Volume 87.3 fL (80.0-100.0) Mean Corpuscular Hemoglobin 29.4 pg (28.0-32.0) Mean Corpuscular Hemoglobin Concent 33.6 g/dL (32.0-36.0) Red Cell Distribution Width 13.6 % (11.8-14.3) Platelet Count 151 10^3/uL (140-450) Mean Platelet Volume 8.9 fL (6.9-10.8) Neutrophils (%) (Auto) 54.5 % (37.0-80.0) Lymphocytes (%) (Auto) 36.0 % (10.0-50.0) Monocytes (%) (Auto) 7.4 % (0.0-12.0) Eosinophils (%) (Auto) 1.6 % (0.0-7.0) Basophils (%) (Auto) 0.5 % (0.0-2.0) Neutrophils # (Auto) 2.7 10 ^3/uL (1.6-8.6) Lymphocytes # (Auto) 1.8 10 ^3/uL (0.4-5.4) Monocytes # (Auto) 0.4 10 ^3/uL (0-1.3) Eosinophils # (Auto) 0.1 10 ^3/uL (0-0.8) Basophils # (Auto) 0 10 ^3/uL (0-0.2) Nucleated Red Blood Cells 0.1 % Prothrombin Time 11.3 sec (9.3-11.8) Prothrombin Time INR 1.07 (0.9-1.15) Activated Partial Thromboplast Time 29.3 SEC (24.5-34.5) Urine Opiates Screen Neg (NEGATIVE) Urine Fentanyl Screen Neg (NEGATIVE) Urine Barbiturates Screen Neg (NEGATIVE) Urine Phencyclidine Screen Neg (NEGATIVE) Urine Amphetamines Screen Neg (NEGATIVE) Urine Benzodiazepines Screen Neg (NEGATIVE) Urine Cocaine Screen Neg (NEGATIVE) Urine Cannabinoids Screen Neg (NEGATIVE) Sodium Level 139 mmol/L (136-145) Potassium Level 3.5 mmol/L (3.5-5.1) Chloride Level 107 mmol/L (98-107) Carbon Dioxide Level 22 mmol/L (20-31) Anion Gap 10 (5-15) Blood Urea Nitrogen 8 mg/dL (9-23) Creatinine 0.72 mg/dL (0.550-1.02) Glomerular Filtration Rate Calc 109 mL/min (>90) BUN/Creatinine Ratio 11.1 (10.0-20.0) Serum Glucose 94 mg/dL (74-106) Calcium Level 8.6 mg/dL (8.7-10.4) Lipase 39 U/L (12-53) Beta HCG, Quantitative 0.5 mIU/mL (1.5-4.2) Plasma/Serum Blood Alcohol < 3.0 mg/dL (<10) Other Laboratory Tests 10/03/24 07:55 10/02/24 05:48 Brief Hx & Hospital Course: 39-year-old female came in for epigastric abdominal pain CT abdomen pelvis without contrast negative lipase normal urine drug screen is negative found to have grade a erosive esophagitis mild gastritis and mild duodenitis by EGD by Dr. Geraldine West placed on pantoprazole and Carafate. Patient feels better being discharged home. She will follow up with the GI Dr. Geraldine West in two weeks for the biopsy result. Prescription for pantoprazole Carafate transmitted to the pharmacy Consults/Reason for consult GI Dr. Geraldine West Operations or Procedures EGD Condition at Discharge: Fair Final Diagnosis/Problems List Acute epigastric pain: CT abdomen pelvis without contrast negative, lipase normal, urine drug screen neg, Grade A erosive esophagitis mild gastritis and mild duodenitis by EGD by Dr. Geraldine West on 10/04/2024 Discharge Disposition: Home Discharge Instruct/Medications Diet: Regular Activity: Light activity Follow Up/Referral: Follow up with GI Dr. Geraldine West in two weeks for the biopsy result Medications: Pantoprazole Carafate Sent to [facility]'s Scheduled Pantoprazole Sodium Sesquihydr (Pantoprazole Sodium), 40 MG PO BID Vit W/ Ferrous Fumara ( One Daily), 1 TAB PO DAILY, (Reported) Sucralfate (Carafate), 1 GM PO QID 39 (Time Taken for discharge summary 39 minutes) Discharge Statement: "Patient was advised to return to the ER or call 911 if any headaches, dizziness, shortness of breath, chest pain, abdominal pain, bleeding, fevers, or worsening of medical condition. Patient was counseled about treatment plan, medications, possible side effects, patientverbalized understanding. All questions were answered to the best of my ability. This discharge took greater then 30 minutes in planning, reviewing documentation, counseling the patient, and discussing with other team members." ASSESSMENT ASSESSMENT Hospital Course Improved Assessment Acute epigastric pain: CT abdomen pelvis without contrast negative, lipase normal, urine drug screen neg, Grade A erosive esophagitis mild gastritis and mild duodenitis by EGD by Dr. Geraldine West on 10/04/2024 Date of Service: Oct 04, 2024 Billing Provider: JEN FINNEY MD Common Visit Codes: [id number] DISCH DAY >30min JEN FINNEY MD Oct 04, 2024 10:38
[2024-10-04 12:24] VITALS: BP 98/62; PULSE 77; RESP 16; TEMP 97.5; O2SAT 98
--- NOTE | 2024-10-04 22:14 | DVHPN2 ---
Progress Note - Dictate Date Seen: Oct 04, 2024 (Late entry Patient seen at bedside at 10:00 a.m.) Medical Necessity Reason Pt with a Central, PICC or Fol: No Subjective No new complaints Patient is resting comfortably No further nausea vomiting EGD findings discussed with patient which showed mild gastritis vital signs Vital Sign Date Time Temp Pulse Resp B/P (MAP) Pulse Ox O2 Delivery O2 Flow Rate FiO2 10/04/24 12:24 97.5 77 16 98 10/04/24 09:00 98/62 (74) 10/04/24 08:00 Room Air* 0 21 Total Intake and Output 10/03/24 10/03/24 10/04/24 15:00 23:00 07:00 Intake Total 50 ml 220 ml 300 ml Balance 50 ml 220 ml 300 ml objective Gen: 39-year-old female in no apparent distress. Skin: Warm, dry, normal color and texture, no rash. HEENT: Normocephalic atraumatic, mucous membranes moist and pink. Neck: Cervical and supraclavicular nodes normal without enlargement, trachea is midline, thyroid gland is normal without masses. Pulmonary: Clear to auscultation and percussion bilaterally. Cardiac: Regular rate and rhythm. No murmur Abdomen: Soft, nontender, nondistended, bowel sounds present all 4 quadrants, no guarding, no rigidity, no organomegaly. Extremities: No cyanosis, clubbing, no edema Neuro: Cranial nerves II through XII grossly intact, normal affect and speech, no focal motor deficits. laboratory and microbiology Laboratory Tests 10/03/24 07:55 10/02/24 05:48 Test 10/02/24 05:48 Range/Units Serum Glucose 94 74-106 mg/dL Problems(with codes): (1) Gastritis (2) Abdominal pain of unknown etiology Prognosis Plan Protonix 40 mg p.o. daily Carafate 1 g p.o. q.h.s. Discontinue aspirin NSAIDs smoking alcohol Discharge planning as per hospitalist Patient could follow up in my office next available appointment or as needed to review biopsy results and discuss further management Plan discussed with: Patient RAMON LALA MD Oct 04, 2024 22:14
== END 2024-10-04 13:51 | disposition home or self-care (01) | DRG 392 ==
LOC: ER 20:49 → OVERFLOW 21:54 → EAST 10-02 21:59
PROVIDERS: ADMIT Family Medicine; ATTEND Family Medicine
PROC: 0DB48ZX Excision of Esophagogastric Junction, Via Natural or Artificial Opening Endoscopic, Diagnostic (ICD-10-PCS; 2024-10-03)
PROC: 0DB98ZX Excision of Duodenum, Via Natural or Artificial Opening Endoscopic, Diagnostic (ICD-10-PCS; 2024-10-03)
PROC: 0DB68ZX Excision of Stomach, Via Natural or Artificial Opening Endoscopic, Diagnostic (ICD-10-PCS; principal; 2024-10-03 13:58)
DX: K29.70 Gastritis, unspecified, without bleeding (principal); K22.10 Ulcer of esophagus without bleeding; K44.9 Diaphragmatic hernia without obstruction or gangrene; K29.80 Duodenitis without bleeding; Z88.0 Allergy status to penicillin
CPT/HCPCS: 36415; 74176; 80048; 80307; 80320; 83690; 84702; 85025; 85610; 85730; G0378; J1100; J2250; J2405; J2470; J2704